=== PATIENT | female | born 1965 | race African-American/Black ===

== ENCOUNTER 2018-04-01 19:56 | Observation (INO) | payer OTHER ==
[2018-04-01 20:33] LABS: ADD MAN DIFF? NO; BASOPHILS % 0.4 % (0.0-2.0); EOSINOPHILS # 0.2 10^3/ul (0.0-0.5); EOSINOPHILS % 3.1 % (0.0-7.0); HEMATOCRIT 36.9 % (37.0-47.0); HEMOGLOBIN 13.1 g/dl (12.0-16.0); LYMPHOCYTES # 2.8 10^3/ul (0.8-2.9); LYMPHOCYTES % 37.8 % (15.0-51.0); MEAN CORPUSCULAR HEMOGLOBIN 30.6 pg (29.0-33.0); MEAN CORPUSCULAR HGB CONC 35.5 g/dl (32.0-37.0); MEAN CORPUSCULAR VOLUME 86.2 fl (82.0-101.0); MONOCYTE # 0.5 10^3/ul (0.3-0.9); MONOCYTES % 7.2 % (0.0-11.0); NEUTROPHIL # 3.8 10^3/ul (1.6-7.5); NEUTROPHILS % 51.2 % (39.0-77.0); PLATELET COUNT 284 10^3/UL (140-415); RED BLOOD COUNT 4.28 10^6/ul (4.20-5.40); RED CELL DISTRIBUTION WIDTH 11.9 % (11.5-14.5)
[2018-04-01 20:33] LABS: WHITE BLOOD COUNT 7.3 10^3/ul (4.8-10.8)
[2018-04-01] MEDS: SOD CHLORIDE 0.9% 820 ML IV (20:39)
[2018-04-01 20:51] LABS: ANION GAP 13 (8-16); BLOOD UREA NITROGEN 13 mg/dl (7-20); CALCIUM 9.4 mg/dl (8.4-10.2); CARBON DIOXIDE 21 mmol/L (21-31); CHLORIDE 101 mmol/L (97-110); CREATININE 0.63 mg/dl (0.44-1.00); MAGNESIUM 1.8 mg/dl (1.7-2.5); PHOSPHORUS 4.2 mg/dl (2.5-4.9); POTASSIUM 4.1 mmol/L (3.5-5.1); SODIUM 131 mmol/L (135-144)
[2018-04-01 20:57] LABS: MODE ROOM AIR; MetHgb Venous 0.4 %; Sample Type Blood venous; Site VENOUS LINE; Venous COHb 0.1 %; Venous Fraction OxyHgb 79.2 %; Venous Oxygen Sat 79.6 mmHG (55.0-75.0); Venous Total Hemglobin 13.3 g/dl
[2018-04-01 21:05] LABS: GLUCOSE 484 mg/dl (70-220)
[2018-04-01] MEDS: DIPHENHYDRAMINE 50 MG INJ IV (21:59)
[2018-04-02] MEDS ORDERED: NACL 0.9% 3 ML SYG IV (02:30)
[2018-04-02] MEDS ORDERED: ONDANSETRON 4 MG INJ IV (02:30)
[2018-04-02] MEDS ORDERED: NITROGLYCERIN (SL) 0.4 MG TAB SL (02:30)
[2018-04-02] MEDS: INSULIN GLARGINE [LANTus] (100 UNITS/ML) SYG SC ×4 (02:30→23:07)
[2018-04-02] MEDS ORDERED: ACETAMINOPHEN 325 MG TAB PO (02:30)
[2018-04-02] MEDS ORDERED: DOCUSATE SODIUM 100 MG CAP PO (02:30)
[2018-04-02] MEDS ORDERED: CARISOPRODOL 350 MG TAB PO (03:30)
[2018-04-02] MEDS: DIPHENHYDRAMINE 25 MG CAP PO ×3 (03:57→21:52)
[2018-04-02] MEDS: SOD CHLORIDE 0.9% 1,000 ML IV (04:44)
[2018-04-02] MEDS: morphine 2 MG INJ IV (04:56)
[2018-04-02 05:38] LABS: ADD MAN DIFF? NO
[2018-04-02 05:40] LABS: WHITE BLOOD COUNT 7.4 10^3/ul (4.8-10.8)
[2018-04-02 05:40] LABS: BASOPHILS % 0.3 % (0.0-2.0); EOSINOPHILS # 0.3 10^3/ul (0.0-0.5); EOSINOPHILS % 3.7 % (0.0-7.0); HEMATOCRIT 35.5 % (37.0-47.0); HEMOGLOBIN 12.8 g/dl (12.0-16.0); LYMPHOCYTES # 2.8 10^3/ul (0.8-2.9); LYMPHOCYTES % 38.2 % (15.0-51.0); MEAN CORPUSCULAR HEMOGLOBIN 31.3 pg (29.0-33.0); MEAN CORPUSCULAR HGB CONC 36.1 g/dl (32.0-37.0); MEAN CORPUSCULAR VOLUME 86.8 fl (82.0-101.0); MEAN PLATELET VOLUME 9.8 fl (7.4-10.4); MONOCYTE # 0.5 10^3/ul (0.3-0.9); MONOCYTES % 7.1 % (0.0-11.0); NEUTROPHIL # 3.7 10^3/ul (1.6-7.5); NEUTROPHILS % 50.4 % (39.0-77.0); PLATELET COUNT 253 10^3/UL (140-415); RED BLOOD COUNT 4.09 10^6/ul (4.20-5.40)
[2018-04-02 06:42] LABS: CK INDEX 1.3; CK-MB 1.32 ng/ml (0.0-2.4); CREATINE KINASE 99 IU/L (23-200); TROPONIN-I 0.025 ng/ml (0.000-0.120)
[2018-04-02 06:51] LABS: ALANINE AMINOTRANSFERASE 22 IU/L (13-69); ALBUMIN/GLOBULIN RATIO 1.25; ALKALINE PHOSPHATASE 53 IU/L (42-121); ANION GAP 9 (8-16); ASPARTATE AMINO TRANSFERASE 15 IU/L (15-46); BILIRUBIN,INDIRECT 0.4 mg/dl (0-1.1); BILIRUBIN,TOTAL 0.4 mg/dl (0.2-1.3); BLOOD UREA NITROGEN 10 mg/dl (7-20); CALCIUM 8.5 mg/dl (8.4-10.2); CARBON DIOXIDE 23 mmol/L (21-31); CHLORIDE 106 mmol/L (97-110); CHOL/HDL RATIO 3.4 RATIO; CHOLESTEROL 194 mg/dl (100-200); GLUCOSE 292 mg/dl (70-220); HDL CHOLESTEROL 57 mg/dl (37-92); LDL CHOLESTEROL,CALCULATED 115 mg/dl; MAGNESIUM 1.6 mg/dl (1.7-2.5); POTASSIUM 4.1 mmol/L (3.5-5.1); SODIUM 134 mmol/L (135-144); TOTAL PROTEIN 5.4 g/dl (6.1-8.1); TRIGLYCERIDES 110 mg/dl (0-149)
[2018-04-02] MEDS ORDERED: INSULIN ASPART [NOVOLOG] 3 ML PEN SC (07:30)
[2018-04-02] MEDS: INSULIN ASPART [NOVOLOG] 3 ML PEN SC ×6 (07:38→21:00)
[2018-04-02] MEDS: RANOLAZINE (SR) 500 MG TAB PO ×2 (09:06→21:52)
[2018-04-02] MEDS: ASPIRIN (EC) 81 MG TAB PO (09:08)
[2018-04-02] MEDS: METOPROLOL (XL) 25 MG TAB PO (09:08)
[2018-04-02] MEDS: ISOSORBIDE MONONITRATE(SR)30 MG TAB PO (09:08)
[2018-04-02] MEDS: DIPHENHYDRAMINE 50 MG INJ IV (10:26)
[2018-04-02 10:51] LABS: CREATINE KINASE 85 IU/L (23-200)
[2018-04-02 10:57] LABS: CK INDEX 1.1; CK-MB 0.95 ng/ml (0.0-2.4); TROPONIN-I < 0.010 ng/ml (0.000-0.120)
[2018-04-02] MEDS: HYDROCODONE/APAP (10/325) TAB PO ×2 (12:30→19:58)
[2018-04-02 15:34] LABS: HEMOGLOBIN A1C 12.9 % (0-5.9)
[2018-04-02] MEDS: LINAGLIPTIN 5 MG TABLET PO ×2 (18:30→19:57)
[2018-04-02] MEDS: metFORMIN 500 MG TAB PO ×2 (18:30→19:57)
[2018-04-02] MEDS ORDERED: GLUCOSE GEL 15 GRAM TUBE BUCCAL (19:30)
[2018-04-02] MEDS: PERMETHRIN 5% 60 GM CR TOP (19:30)
[2018-04-02] MEDS ORDERED: DEXTROSE 50% 50 ML SYRINGE IV ×2 (19:30)
[2018-04-02] MEDS ORDERED: GLUCAGON 1 MG INJ IM (19:30)
[2018-04-02] MEDS ORDERED: GLUCOSE GEL 15 GRAM TUBE PO ×2 (19:30)
[2018-04-02 20:21] LABS: HEPATITIS B SURFACE ANTIGEN NEGATIVE (NEGATIVE)
[2018-04-02 20:39] LABS: HEPATITIS C VIRAL ANTIBODY NEGATIVE (NEGATIVE)
[2018-04-02 20:43] LABS: HEPATITIS B SURFACE ANTIBODY NEGATIVE (NEGATIVE)
[2018-04-02] MEDS: MAGNESIUM SULFATE 2 GM/50 ML 50 ML IVPB (21:46)
[2018-04-02] MEDS: ZOLPIDEM 5 MG TAB PO (21:52)
[2018-04-02] MEDS: ATORVASTATIN 40 MG TAB PO (21:52)
[2018-04-02] MEDS: GABAPENTIN 300 MG CAP PO (21:52)
[2018-04-02] MEDS: PAROXETINE 10 MG TAB PO (21:53)
[2018-04-02] MEDS: ARIPIPRAZOLE 10 MG TAB PO (22:05)
[2018-04-03] MEDS: ACCU-CHEK XX (02:41)
[2018-04-03] MEDS: INSULIN ASPART [NOVOLOG] 3 ML PEN SC ×7 (08:13→20:35)
[2018-04-03] MEDS: morphine 2 MG INJ IV ×3 (08:22→20:36)
[2018-04-03] MEDS: LINAGLIPTIN 5 MG TABLET PO (08:23)
[2018-04-03] MEDS: metFORMIN 500 MG TAB PO ×2 (08:23→17:07)
[2018-04-03] MEDS: ASPIRIN (EC) 81 MG TAB PO (08:23)
[2018-04-03] MEDS: RANOLAZINE (SR) 500 MG TAB PO ×2 (08:24→20:36)
[2018-04-03] MEDS: ISOSORBIDE MONONITRATE(SR)30 MG TAB PO (08:24)
[2018-04-03] MEDS: METOPROLOL (XL) 25 MG TAB PO (08:25)
[2018-04-03] MEDS: INSULIN GLARGINE [LANTus] (100 UNITS/ML) SYG SC ×2 (08:32→20:55)
[2018-04-03] MEDS: DIPHENHYDRAMINE 50 MG INJ IV ×2 (11:51→20:45)
[2018-04-03] MEDS: FLUTICASONE/VILANTEROL 200-25 INH DEVICE INH (13:34)
[2018-04-03] MEDS: MONTELUKAST 10 MG TAB PO (20:36)
[2018-04-03] MEDS: PAROXETINE 10 MG TAB PO (20:36)
[2018-04-03] MEDS: ARIPIPRAZOLE 10 MG TAB PO (20:36)
[2018-04-03] MEDS: GABAPENTIN 300 MG CAP PO (20:36)
[2018-04-03] MEDS: ATORVASTATIN 40 MG TAB PO (20:36)
[2018-04-04] MEDS: ACCU-CHEK XX (02:00)
[2018-04-04] MEDS: morphine 2 MG INJ IV ×3 (02:54→13:09)
[2018-04-04] MEDS: DIPHENHYDRAMINE 50 MG INJ IV ×3 (02:55→13:09)
[2018-04-04] MEDS: LOSARTAN 50 MG TAB PO ×2 (06:33→08:59)
[2018-04-04] MEDS: metFORMIN 500 MG TAB PO (07:44)
[2018-04-04] MEDS: INSULIN ASPART [NOVOLOG] 3 ML PEN SC ×4 (07:51→11:29)
[2018-04-04 08:44] LABS: ADD MAN DIFF? NO
[2018-04-04 08:52] LABS: BASOPHILS % 0.4 % (0.0-2.0); EOSINOPHILS # 0.3 10^3/ul (0.0-0.5); EOSINOPHILS % 3.3 % (0.0-7.0); HEMOGLOBIN 13.3 g/dl (12.0-16.0); LYMPHOCYTES # 2.7 10^3/ul (0.8-2.9); LYMPHOCYTES % 29.6 % (15.0-51.0); MEAN CORPUSCULAR HEMOGLOBIN 30.8 pg (29.0-33.0); MEAN CORPUSCULAR HGB CONC 34.1 g/dl (32.0-37.0); MEAN CORPUSCULAR VOLUME 90.3 fl (82.0-101.0); MONOCYTE # 0.8 10^3/ul (0.3-0.9); MONOCYTES % 8.5 % (0.0-11.0); NEUTROPHIL # 5.3 10^3/ul (1.6-7.5); NEUTROPHILS % 57.9 % (39.0-77.0); PLATELET COUNT 317 10^3/UL (140-415); RED BLOOD COUNT 4.32 10^6/ul (4.20-5.40); RED CELL DISTRIBUTION WIDTH 12.4 % (11.5-14.5)
[2018-04-04 08:52] LABS: WHITE BLOOD COUNT 9.1 10^3/ul (4.8-10.8)
[2018-04-04] MEDS: FLUTICASONE/VILANTEROL 200-25 INH DEVICE INH (08:57)
[2018-04-04] MEDS: ASPIRIN (EC) 81 MG TAB PO (08:58)
[2018-04-04] MEDS: RANOLAZINE (SR) 500 MG TAB PO (08:58)
[2018-04-04] MEDS: ISOSORBIDE MONONITRATE(SR)30 MG TAB PO (08:59)
[2018-04-04] MEDS: METOPROLOL (XL) 25 MG TAB PO (08:59)
[2018-04-04] MEDS: LINAGLIPTIN 5 MG TABLET PO (08:59)
[2018-04-04] MEDS: INSULIN GLARGINE [LANTus] (100 UNITS/ML) SYG SC (09:03)
[2018-04-04 09:15] LABS: ANION GAP 9 (8-16); BLOOD UREA NITROGEN 14 mg/dl (7-20); CARBON DIOXIDE 25 mmol/L (21-31); CHLORIDE 107 mmol/L (97-110); CREATININE 0.81 mg/dl (0.44-1.00); GLUCOSE 69 mg/dl (70-220); MAGNESIUM 1.6 mg/dl (1.7-2.5); POTASSIUM 4.1 mmol/L (3.5-5.1); SODIUM 137 mmol/L (135-144)
[2018-04-04] MEDS: MAGNESIUM SULFATE 2 GM/50 ML 50 ML IVPB (12:37)
[2018-04-04] MEDS ORDERED: REPAGLINIDE 1 MG TAB PO (17:25)
[2018-04-04] MEDS ORDERED: INSULIN GLARGINE [LANTus] (100 UNITS/ML) SYG SC (21:00)
== END 2018-04-04 17:09 | disposition home health service (06) ==
LOC: E/R 19:56 → TEL 04-02 02:27
DX: R07.89 Other chest pain (principal); I10 Essential (primary) hypertension; E11.9 Type 2 diabetes mellitus without complications; I25.10 Atherosclerotic heart disease of native coronary artery without angina pectoris; E11.40 Type 2 diabetes mellitus with diabetic neuropathy, unspecified; E78.5 Hyperlipidemia, unspecified; F32.9 Major depressive disorder, single episode, unspecified; I25.2 Old myocardial infarction; E11.65 Type 2 diabetes mellitus with hyperglycemia; E66.9 Obesity, unspecified; L29.9 Pruritus, unspecified; J45.40 Moderate persistent asthma, uncomplicated; E11.69 Type 2 diabetes mellitus with other specified complication; E83.42 Hypomagnesemia; Z68.29 Body mass index [BMI] 29.0-29.9, adult; Z79.4 Long term (current) use of insulin
CPT/HCPCS: 36415; 71045; 80048; 80053; 80061; 82550; 82553; 82803; 82962; 83036; 83735; 84100; 84443; 84484; 85025; 86706; 86803; 87340; 93005; 93306; 96374; 99217; 99285-25; G0378

== ENCOUNTER 2018-04-21 16:16 | Inpatient (IN) | payer OTHER ==
[2018-04-21 16:33] LABS: ADD MAN DIFF? NO
[2018-04-21 16:37] LABS: WHITE BLOOD COUNT 8.6 10^3/ul (4.8-10.8)
[2018-04-21 16:37] LABS: BASOPHILS % 0.5 % (0.0-2.0); EOSINOPHILS # 0.2 10^3/ul (0.0-0.5); EOSINOPHILS % 2.3 % (0.0-7.0); HEMATOCRIT 34.2 % (37.0-47.0); HEMOGLOBIN 12.1 g/dl (12.0-16.0); LYMPHOCYTES # 2.2 10^3/ul (0.8-2.9); LYMPHOCYTES % 25.1 % (15.0-51.0); MEAN CORPUSCULAR HEMOGLOBIN 30.6 pg (29.0-33.0); MEAN CORPUSCULAR HGB CONC 35.4 g/dl (32.0-37.0); MEAN CORPUSCULAR VOLUME 86.6 fl (82.0-101.0); MEAN PLATELET VOLUME 9.9 fl (7.4-10.4); MONOCYTE # 0.8 10^3/ul (0.3-0.9); MONOCYTES % 8.9 % (0.0-11.0); NEUTROPHIL # 5.4 10^3/ul (1.6-7.5); PLATELET COUNT 307 10^3/UL (140-415); RED BLOOD COUNT 3.95 10^6/ul (4.20-5.40); RED CELL DISTRIBUTION WIDTH 11.6 % (11.5-14.5)
[2018-04-21] MEDS: morphine 4 MG/ML VIAL IV (16:46)
[2018-04-21] MEDS: ONDANSETRON 4 MG INJ IV (16:46)
[2018-04-21] MEDS: SOD CHLORIDE 0.9% 1,000 ML IV ×2 (16:47→21:53)
[2018-04-21 16:51] LABS: INR 0.85; PROTIME 11.7 Sec (11.9-14.9); PT RATIO 0.9
[2018-04-21 16:52] LABS: PARTIAL THROMBOPLASTIN TIME 29.2 Sec (25.0-35.0)
[2018-04-21 16:56] LABS: ALANINE AMINOTRANSFERASE 20 IU/L (13-69); ALBUMIN 3.8 g/dl (3.3-4.9); ALBUMIN/GLOBULIN RATIO 1.31; ALKALINE PHOSPHATASE 75 IU/L (42-121); ANION GAP 15 (8-16); ASPARTATE AMINO TRANSFERASE 27 IU/L (15-46); BILIRUBIN,INDIRECT 0.5 mg/dl (0-1.1); BILIRUBIN,TOTAL 0.5 mg/dl (0.2-1.3); BLOOD UREA NITROGEN 10 mg/dl (7-20); CALCIUM 9.3 mg/dl (8.4-10.2); CARBON DIOXIDE 24 mmol/L (21-31); CHLORIDE 98 mmol/L (97-110); CREATININE 0.84 mg/dl (0.44-1.00); GLUCOSE 390 mg/dl (70-220); LIPASE 50 U/L (23-300); POTASSIUM 4.4 mmol/L (3.5-5.1); SODIUM 133 mmol/L (135-144); TOTAL PROTEIN 6.7 g/dl (6.1-8.1)
[2018-04-21 17:04] LABS: B-TYPE NATRIURETIC PEPTIDE 719 PG/ML (0-125)
[2018-04-21] MEDS: ASPIRIN 81 MG TAB PO (17:27)
[2018-04-21] MEDS: TICAGRELOR 90 MG TABLET PO ×2 (18:21→20:53)
[2018-04-21] MEDS: DIPHENHYDRAMINE 50 MG INJ IV (18:21)
[2018-04-21] MEDS ORDERED: TICAGRELOR 90 MG TABLET PO (18:30)
[2018-04-21] MEDS ORDERED: LIDOCAINE 1% (MDV) 20 ML INJ (18:33)
[2018-04-21] MEDS ORDERED: IODIXANOL LOCM 100 ML BTL ×3 (18:33→19:48)
[2018-04-21 18:38] LABS: CREATINE KINASE 135 IU/L (23-200)
[2018-04-21] MEDS ORDERED: MIDAZOLAM 1 MG/ML 2 ML INJ (18:43)
[2018-04-21] MEDS ORDERED: FENTAnyl 50 MCG/ML VIAL (18:43)
[2018-04-21 18:51] LABS: CK INDEX 1.2; CK-MB 1.58 ng/ml (0.0-2.4)
[2018-04-21] MEDS ORDERED: CARISOPRODOL 350 MG TAB PO (19:00)
[2018-04-21] MEDS ORDERED: DOCUSATE SODIUM 100 MG CAP PO (19:00)
[2018-04-21] MEDS ORDERED: NITROGLYCERIN (IC) 100 MCG/ML INJ (19:02)
[2018-04-21] MEDS ORDERED: BIVALIRUDIN 250MG /NS 50 ML 50 ML IVPB (19:14)
[2018-04-21] MEDS ORDERED: VERAPAMIL 5 MG INJ (19:23)
[2018-04-21] MEDS ORDERED: GLUCOSE GEL 15 GRAM TUBE PO ×2 (19:30)
[2018-04-21] MEDS ORDERED: GLUCOSE GEL 15 GRAM TUBE BUCCAL (19:30)
[2018-04-21] MEDS ORDERED: DEXTROSE 50% 50 ML SYRINGE IV ×2 (19:30)
[2018-04-21] MEDS ORDERED: GLUCAGON 1 MG INJ IM (19:30)
[2018-04-21] MEDS ORDERED: IOHEXOL 350MG/ML 50 ML BTL (19:48)
[2018-04-21] MEDS ORDERED: DOPamine-D5W 1.6 MG/ML 250 ML (20:04)
[2018-04-21] MEDS ORDERED: SOD CHLORIDE 0.9% 500 ML (20:08)
[2018-04-21] MEDS ORDERED: ACETAMINOPHEN 325 MG TAB PO (20:30)
[2018-04-21] MEDS: DOCUSATE SODIUM 100 MG CAP PO (21:00)
[2018-04-21] MEDS ORDERED: ATORVASTATIN 40 MG TAB PO (21:00)
[2018-04-21] MEDS: RANOLAZINE (SR) 500 MG TAB PO (21:46)
[2018-04-21] MEDS: PAROXETINE 10 MG TAB PO (21:47)
[2018-04-21] MEDS: ARIPIPRAZOLE 10 MG TAB PO (21:47)
[2018-04-21] MEDS: GABAPENTIN 300 MG CAP PO (21:48)
[2018-04-21] MEDS: OXYCODONE/ACETAMINOPHEN (5/325) TAB PO (21:48)
[2018-04-21] MEDS: ATORVASTATIN 80 MG TAB PO (21:48)
[2018-04-21] MEDS: FAMOTIDINE 20 MG TAB PO (21:48)
[2018-04-21] MEDS: DOPamine-D5W 1.6 MG/ML 250 ML IV (21:56)
[2018-04-21] MEDS: PANTOPRAZOLE SODIUM 20 MG TABEC PO (22:39)
[2018-04-21] MEDS: INSULIN GLARGINE [LANTus] (100 UNITS/ML) SYG SC (22:41)
[2018-04-21] MEDS: morphine 2 MG INJ IV (23:35)
[2018-04-22] MEDS: INSULIN ASPART [NOVOLOG] 3 ML PEN SC ×9 (01:10→21:00)
[2018-04-22] MEDS: morphine 2 MG INJ IV ×4 (04:35→21:10)
[2018-04-22 05:14] LABS: ADD MAN DIFF? NO
[2018-04-22 05:25] LABS: BASOPHILS % 0.3 % (0.0-2.0); EOSINOPHILS # 0.1 10^3/ul (0.0-0.5); EOSINOPHILS % 1.1 % (0.0-7.0); HEMATOCRIT 34.1 % (37.0-47.0); LYMPHOCYTES # 1.5 10^3/ul (0.8-2.9); LYMPHOCYTES % 16.9 % (15.0-51.0); MEAN CORPUSCULAR HEMOGLOBIN 30.5 pg (29.0-33.0); MEAN CORPUSCULAR HGB CONC 35.2 g/dl (32.0-37.0); MEAN CORPUSCULAR VOLUME 86.8 fl (82.0-101.0); MEAN PLATELET VOLUME 10.1 fl (7.4-10.4); MONOCYTE # 0.6 10^3/ul (0.3-0.9); MONOCYTES % 6.6 % (0.0-11.0); NEUTROPHIL # 6.7 10^3/ul (1.6-7.5); NEUTROPHILS % 74.9 % (39.0-77.0); PLATELET COUNT 324 10^3/UL (140-415); RED BLOOD COUNT 3.93 10^6/ul (4.20-5.40); RED CELL DISTRIBUTION WIDTH 11.9 % (11.5-14.5)
[2018-04-22 05:42] LABS: ALANINE AMINOTRANSFERASE 25 IU/L (13-69); ALBUMIN 3.2 g/dl (3.3-4.9); ALBUMIN/GLOBULIN RATIO 1.03; ALKALINE PHOSPHATASE 58 IU/L (42-121); ANION GAP 14 (8-16); ASPARTATE AMINO TRANSFERASE 27 IU/L (15-46); BILIRUBIN,INDIRECT 0.6 mg/dl (0-1.1); BILIRUBIN,TOTAL 0.6 mg/dl (0.2-1.3); BLOOD UREA NITROGEN 12 mg/dl (7-20); CALCIUM 8.8 mg/dl (8.4-10.2); CARBON DIOXIDE 23 mmol/L (21-31); CHLORIDE 103 mmol/L (97-110); CHOL/HDL RATIO 2.6 RATIO; CHOLESTEROL 131 mg/dl (100-200); GLUCOSE 289 mg/dl (70-220); HDL CHOLESTEROL 49 mg/dl (37-92); LDL CHOLESTEROL,CALCULATED 69 mg/dl; POTASSIUM 4.2 mmol/L (3.5-5.1); SODIUM 136 mmol/L (135-144); TOTAL PROTEIN 6.3 g/dl (6.1-8.1); TRIGLYCERIDES 66 mg/dl (0-149)
[2018-04-22 05:48] LABS: CREATINE KINASE 148 IU/L (23-200)
[2018-04-22 05:50] LABS: MAGNESIUM 1.4 mg/dl (1.7-2.5)
[2018-04-22 05:51] LABS: B-TYPE NATRIURETIC PEPTIDE 502 PG/ML (0-125)
[2018-04-22 05:59] LABS: FREE T4 (FREE THYROXINE) 1.09 ng/dl (0.64-1.79)
[2018-04-22 06:01] LABS: CK INDEX 1.2; CK-MB 1.79 ng/ml (0.0-2.4)
[2018-04-22] MEDS: PANTOPRAZOLE SODIUM 20 MG TABEC PO ×2 (06:42→18:00)
[2018-04-22] MEDS ORDERED: INSULIN ASPART [NOVOLOG] 3 ML PEN SC (07:00)
[2018-04-22] MEDS: ASPIRIN (EC) 81 MG TAB PO (08:08)
[2018-04-22] MEDS: TICAGRELOR 90 MG TABLET PO (08:08)
[2018-04-22] MEDS: DOCUSATE SODIUM 100 MG CAP PO ×2 (08:09→21:10)
[2018-04-22] MEDS: METOPROLOL (XL) 25 MG TAB PO (08:09)
[2018-04-22] MEDS: RANOLAZINE (SR) 500 MG TAB PO ×2 (08:09→21:09)
[2018-04-22] MEDS: ISOSORBIDE MONONITRATE(SR)30 MG TAB PO (08:09)
[2018-04-22] MEDS: FAMOTIDINE 20 MG TAB PO ×2 (08:09→21:10)
[2018-04-22] MEDS ORDERED: ASPIRIN (EC) 81 MG TAB PO (09:00)
[2018-04-22] MEDS ORDERED: LINAGLIPTIN 5 MG TABLET PO (10:00)
[2018-04-22] MEDS: DIPHENHYDRAMINE 50 MG INJ IV (10:20)
[2018-04-22] MEDS: MAGNESIUM SULFATE 2 GM/50 ML 50 ML IVPB (10:21)
[2018-04-22] MEDS ORDERED: ACCU-CHEK XX (11:00)
[2018-04-22] MEDS: ACCU-CHEK XX ×3 (11:00→21:00)
[2018-04-22] MEDS: INSULIN GLARGINE [LANTus] (100 UNITS/ML) SYG SC ×2 (11:25→21:12)
[2018-04-22] MEDS ORDERED: metFORMIN 500 MG TAB PO (17:35)
[2018-04-22] MEDS: CLOPIDOGREL 75 MG TAB PO (21:08)
[2018-04-22] MEDS: GABAPENTIN 300 MG CAP PO (21:09)
[2018-04-22] MEDS: PAROXETINE 10 MG TAB PO (21:09)
[2018-04-22] MEDS: ATORVASTATIN 80 MG TAB PO (21:09)
[2018-04-22] MEDS: ARIPIPRAZOLE 5 MG TAB PO (21:17)
[2018-04-23] MEDS: DIPHENHYDRAMINE 50 MG CAP PO (00:38)
[2018-04-23] MEDS: INSULIN ASPART [NOVOLOG] 3 ML PEN SC ×9 (00:52→20:21)
[2018-04-23] MEDS: morphine 2 MG INJ IV ×2 (04:34→08:25)
[2018-04-23] MEDS: PANTOPRAZOLE SODIUM 20 MG TABEC PO ×2 (05:33→17:19)
[2018-04-23 05:39] LABS: ADD MAN DIFF? NO
[2018-04-23 05:44] LABS: BASOPHILS % 0.4 % (0.0-2.0); EOSINOPHILS # 0.2 10^3/ul (0.0-0.5); EOSINOPHILS % 3.1 % (0.0-7.0); HEMATOCRIT 33.9 % (37.0-47.0); HEMOGLOBIN 11.8 g/dl (12.0-16.0); LYMPHOCYTES # 2.4 10^3/ul (0.8-2.9); LYMPHOCYTES % 30.9 % (15.0-51.0); MEAN CORPUSCULAR HEMOGLOBIN 30.4 pg (29.0-33.0); MEAN CORPUSCULAR HGB CONC 34.8 g/dl (32.0-37.0); MEAN CORPUSCULAR VOLUME 87.4 fl (82.0-101.0); MEAN PLATELET VOLUME 10.2 fl (7.4-10.4); MONOCYTE # 0.5 10^3/ul (0.3-0.9); MONOCYTES % 6.9 % (0.0-11.0); NEUTROPHIL # 4.5 10^3/ul (1.6-7.5); NEUTROPHILS % 58.4 % (39.0-77.0); PLATELET COUNT 292 10^3/UL (140-415); RED BLOOD COUNT 3.88 10^6/ul (4.20-5.40)
[2018-04-23 05:44] LABS: WHITE BLOOD COUNT 7.7 10^3/ul (4.8-10.8)
[2018-04-23 06:03] LABS: HEMOGLOBIN A1C 11.4 % (0-5.9)
[2018-04-23 06:11] LABS: ALANINE AMINOTRANSFERASE 19 IU/L (13-69); ALBUMIN 3.2 g/dl (3.3-4.9); ALKALINE PHOSPHATASE 52 IU/L (42-121); ANION GAP 12 (8-16); ASPARTATE AMINO TRANSFERASE 25 IU/L (15-46); BILIRUBIN,INDIRECT 0.2 mg/dl (0-1.1); BILIRUBIN,TOTAL 0.2 mg/dl (0.2-1.3); BLOOD UREA NITROGEN 17 mg/dl (7-20); CALCIUM 9.6 mg/dl (8.4-10.2); CARBON DIOXIDE 25 mmol/L (21-31); CHLORIDE 103 mmol/L (97-110); CHOL/HDL RATIO 2.6 RATIO; CHOLESTEROL 131 mg/dl (100-200); CREATINE KINASE 90 IU/L (23-200); CREATININE 0.74 mg/dl (0.44-1.00); GLUCOSE 183 mg/dl (70-220); HDL CHOLESTEROL 49 mg/dl (37-92); LDL CHOLESTEROL,CALCULATED 65 mg/dl; SODIUM 136 mmol/L (135-144); TOTAL PROTEIN 6.1 g/dl (6.1-8.1); TRIGLYCERIDES 86 mg/dl (0-149)
[2018-04-23 06:23] LABS: CK INDEX 1.7; CK-MB 1.53 ng/ml (0.0-2.4)
[2018-04-23 06:27] LABS: ANION GAP 14 (8-16); BLOOD UREA NITROGEN 16 mg/dl (7-20); CALCIUM 9.7 mg/dl (8.4-10.2); CARBON DIOXIDE 24 mmol/L (21-31); CHLORIDE 102 mmol/L (97-110); GLUCOSE 177 mg/dl (70-220); MAGNESIUM 1.3 mg/dl (1.7-2.5); PHOSPHORUS 5.4 mg/dl (2.5-4.9); POTASSIUM 4.4 mmol/L (3.5-5.1); SODIUM 136 mmol/L (135-144)
[2018-04-23] MEDS: ACCU-CHEK XX ×4 (07:55→21:53)
[2018-04-23] MEDS: FAMOTIDINE 20 MG TAB PO (08:22)
[2018-04-23] MEDS: DOCUSATE SODIUM 100 MG CAP PO ×2 (08:22→20:19)
[2018-04-23] MEDS: ASPIRIN (EC) 81 MG TAB PO (08:23)
[2018-04-23] MEDS: CLOPIDOGREL 75 MG TAB PO (08:23)
[2018-04-23] MEDS: ISOSORBIDE MONONITRATE(SR)30 MG TAB PO (08:23)
[2018-04-23] MEDS: RANOLAZINE (SR) 500 MG TAB PO ×2 (08:23→21:53)
[2018-04-23] MEDS: METOPROLOL (XL) 25 MG TAB PO (08:24)
[2018-04-23] MEDS: INSULIN GLARGINE [LANTus] (100 UNITS/ML) SYG SC ×2 (08:31→20:36)
[2018-04-23] MEDS: MAGNESIUM SULFATE 2 GM/50 ML 50 ML IVPB (11:19)
[2018-04-23] MEDS ORDERED: LISINOPRIL 5 MG TAB PO (12:30)
[2018-04-23] MEDS: LOSARTAN 50 MG TAB PO (17:19)
[2018-04-23] MEDS: morphine LIQ (10 MG/5 ML) CUP PO (17:37)
[2018-04-23] MEDS: ARIPIPRAZOLE 5 MG TAB PO (20:18)
[2018-04-23] MEDS: GABAPENTIN 300 MG CAP PO (20:19)
[2018-04-23] MEDS: PAROXETINE 10 MG TAB PO (20:19)
[2018-04-23] MEDS: ATORVASTATIN 80 MG TAB PO (20:19)
[2018-04-24] MEDS: morphine LIQ (10 MG/5 ML) CUP PO ×2 (01:26→09:13)
[2018-04-24] MEDS: INSULIN ASPART [NOVOLOG] 3 ML PEN SC ×6 (01:29→11:36)
[2018-04-24 06:18] LABS: ADD MAN DIFF? NO
[2018-04-24 06:30] LABS: WHITE BLOOD COUNT 7.4 10^3/ul (4.8-10.8)
[2018-04-24 06:30] LABS: BASOPHILS % 0.4 % (0.0-2.0); EOSINOPHILS # 0.3 10^3/ul (0.0-0.5); EOSINOPHILS % 3.8 % (0.0-7.0); HEMATOCRIT 36.3 % (37.0-47.0); HEMOGLOBIN 12.4 g/dl (12.0-16.0); LYMPHOCYTES # 2.5 10^3/ul (0.8-2.9); LYMPHOCYTES % 33.4 % (15.0-51.0); MEAN CORPUSCULAR HEMOGLOBIN 30.5 pg (29.0-33.0); MEAN CORPUSCULAR HGB CONC 34.2 g/dl (32.0-37.0); MEAN CORPUSCULAR VOLUME 89.2 fl (82.0-101.0); MONOCYTE # 0.7 10^3/ul (0.3-0.9); MONOCYTES % 8.8 % (0.0-11.0); NEUTROPHIL # 3.9 10^3/ul (1.6-7.5); NEUTROPHILS % 53.3 % (39.0-77.0); PLATELET COUNT 317 10^3/UL (140-415); RED BLOOD COUNT 4.07 10^6/ul (4.20-5.40); RED CELL DISTRIBUTION WIDTH 11.9 % (11.5-14.5)
[2018-04-24] MEDS: PANTOPRAZOLE SODIUM 20 MG TABEC PO (06:37)
[2018-04-24 06:40] LABS: ALBUMIN 3.1 g/dl (3.3-4.9); ANION GAP 10 (8-16); BLOOD UREA NITROGEN 16 mg/dl (7-20); CALCIUM 9.6 mg/dl (8.4-10.2); CARBON DIOXIDE 29 mmol/L (21-31); CHLORIDE 100 mmol/L (97-110); CREATININE 0.66 mg/dl (0.44-1.00); GLUCOSE 159 mg/dl (70-220); MAGNESIUM 1.5 mg/dl (1.7-2.5); PHOSPHORUS 5.7 mg/dl (2.5-4.9); POTASSIUM 4.4 mmol/L (3.5-5.1); SODIUM 135 mmol/L (135-144)
[2018-04-24] MEDS: ACCU-CHEK XX ×2 (07:00→11:30)
[2018-04-24] MEDS: METOPROLOL (XL) 25 MG TAB PO (07:46)
[2018-04-24] MEDS: DOCUSATE SODIUM 100 MG CAP PO (07:46)
[2018-04-24] MEDS: LOSARTAN 50 MG TAB PO (07:46)
[2018-04-24] MEDS: ASPIRIN (EC) 81 MG TAB PO (07:46)
[2018-04-24] MEDS: RANOLAZINE (SR) 500 MG TAB PO (07:46)
[2018-04-24] MEDS: CLOPIDOGREL 75 MG TAB PO (07:47)
[2018-04-24] MEDS: ISOSORBIDE MONONITRATE(SR)30 MG TAB PO (07:47)
[2018-04-24] MEDS: INSULIN GLARGINE [LANTus] (100 UNITS/ML) SYG SC (08:09)
[2018-04-24] MEDS: MAGNESIUM SULFATE 3 GM in DEXTROSE 5% 100 ML IVPB (08:30)
== END 2018-04-24 15:58 | disposition home health service (06) | DRG 246 ==
LOC: E/R 16:16 → 6WM 04-22 16:30 → REC 18:14 → ICU 20:34
PROC: 027034Z Dilation of Coronary Artery, One Artery with Drug-eluting Intraluminal Device, Percutaneous Approach (ICD-10-PCS; principal; 2018-04-21 18:30)
PROC: 02C03ZZ Extirpation of Matter from Coronary Artery, One Artery, Percutaneous Approach (ICD-10-PCS; 2018-04-21 18:30)
PROC: 4A023N7 Measurement of Cardiac Sampling and Pressure, Left Heart, Percutaneous Approach (ICD-10-PCS; 2018-04-21 18:30)
PROC: B211YZZ Fluoroscopy of Multiple Coronary Arteries using Other Contrast (ICD-10-PCS; 2018-04-21 18:30)
DX: T82.855A Stenosis of coronary artery stent, initial encounter (principal); I21.4 Non-ST elevation (NSTEMI) myocardial infarction; R57.0 Cardiogenic shock; I25.10 Atherosclerotic heart disease of native coronary artery without angina pectoris; I10 Essential (primary) hypertension; E66.9 Obesity, unspecified; E78.5 Hyperlipidemia, unspecified; F17.200 Nicotine dependence, unspecified, uncomplicated; E11.40 Type 2 diabetes mellitus with diabetic neuropathy, unspecified; I25.2 Old myocardial infarction; F39 Unspecified mood [affective] disorder; Z68.30 Body mass index [BMI] 30.0-30.9, adult; Z91.14 Patient's other noncompliance with medication regimen
CPT/HCPCS: 36415; 71045; 80053; 80061; 80069; 82550; 82553; 82962; 83036; 83690; 83735; 83880; 84439; 84443; 84484; 85025; 85610; 85730; 87081; 93005; 93306; 93458; 96374; 96375; 97116; 97161; 99291-25

== ENCOUNTER 2018-05-28 13:54 | Emergency (ER) | payer OTHER ==
[2018-05-28 14:26] LABS: ADD MAN DIFF? NO
[2018-05-28 14:29] LABS: WHITE BLOOD COUNT 7.1 10^3/ul (4.8-10.8)
[2018-05-28 14:29] LABS: BASOPHILS % 0.4 % (0.0-2.0); EOSINOPHILS # 0.1 10^3/ul (0.0-0.5); HEMATOCRIT 39.2 % (37.0-47.0); LYMPHOCYTES # 1.7 10^3/ul (0.8-2.9); LYMPHOCYTES % 24.5 % (15.0-51.0); MEAN CORPUSCULAR HEMOGLOBIN 30.6 pg (29.0-33.0); MEAN CORPUSCULAR HGB CONC 35.7 g/dl (32.0-37.0); MEAN CORPUSCULAR VOLUME 85.8 fl (82.0-101.0); MONOCYTE # 0.4 10^3/ul (0.3-0.9); MONOCYTES % 6.1 % (0.0-11.0); NEUTROPHIL # 4.8 10^3/ul (1.6-7.5); NEUTROPHILS % 67.9 % (39.0-77.0); PLATELET COUNT 314 10^3/UL (140-415); RED BLOOD COUNT 4.57 10^6/ul (4.20-5.40); RED CELL DISTRIBUTION WIDTH 11.7 % (11.5-14.5)
[2018-05-28] MEDS: LIDOCAINE/MYLANTA 40 ML BTL PO (14:33)
[2018-05-28] MEDS: ASPIRIN 325 MG TAB PO (14:33)
[2018-05-28 14:48] LABS: ANION GAP 15 (8-16); BLOOD UREA NITROGEN 9 mg/dl (7-20); CALCIUM 9.1 mg/dl (8.4-10.2); CARBON DIOXIDE 25 mmol/L (21-31); CHLORIDE 100 mmol/L (97-110); CREATININE 0.68 mg/dl (0.44-1.00); POTASSIUM 4.6 mmol/L (3.5-5.1); SODIUM 135 mmol/L (135-144)
[2018-05-28 14:51] LABS: GLUCOSE 459 mg/dl (70-220)
[2018-05-28 15:00] LABS: B-TYPE NATRIURETIC PEPTIDE 356 PG/ML (0-125); TROPONIN-I < 0.012 ng/ml (0.000-0.120)
[2018-05-28 15:07] LABS: LIPASE 189 U/L (23-300)
[2018-05-28] MEDS: ONDANSETRON 4 MG INJ IV (15:55)
[2018-05-28] MEDS: SOD CHLORIDE 0.9% 1,000 ML IV (15:56)
[2018-05-28] MEDS: KETOROLAC 30 MG INJ IV (15:56)
[2018-05-28] MEDS: INSULIN LISPRO 100 UNIT/ML VIAL SC (16:14)
[2018-05-28] MEDS: hydrOXYzine HCL 25 MG TAB PO (16:22)
[2018-05-28 19:28] LABS: TROPONIN-I < 0.012 ng/ml (0.000-0.120)
== END 2018-05-28 20:38 | disposition short-term general hospital (02) ==
LOC: E/R 13:54
DX: R07.9 Chest pain, unspecified (principal); E11.65 Type 2 diabetes mellitus with hyperglycemia; Z76.5 Malingerer [conscious simulation]; Z79.01 Long term (current) use of anticoagulants; Z79.4 Long term (current) use of insulin; Z79.82 Long term (current) use of aspirin
CPT/HCPCS: 36415; 71045; 80048; 82962; 83690; 83880; 84484; 85025; 93005; 96361; 96372; 96374; 96375; 99285-25

== ENCOUNTER 2018-08-16 09:30 | Emergency (ER) | payer OTHER ==
[2018-08-16 09:48] LABS: ADD MAN DIFF? NO
[2018-08-16 09:50] LABS: BASOPHILS % 0.3 % (0.0-2.0); EOSINOPHILS # 0.2 10^3/ul (0.0-0.5); HEMATOCRIT 34.7 % (37.0-47.0); HEMOGLOBIN 11.8 g/dl (12.0-16.0); LYMPHOCYTES # 1.8 10^3/ul (0.8-2.9); LYMPHOCYTES % 23.2 % (15.0-51.0); MEAN CORPUSCULAR HEMOGLOBIN 30.3 pg (29.0-33.0); MEAN CORPUSCULAR VOLUME 89.2 fl (82.0-101.0); MEAN PLATELET VOLUME 9.7 fl (7.4-10.4); MONOCYTE # 0.6 10^3/ul (0.3-0.9); MONOCYTES % 8.2 % (0.0-11.0); NEUTROPHIL # 5.2 10^3/ul (1.6-7.5); NEUTROPHILS % 65.9 % (39.0-77.0); PLATELET COUNT 263 10^3/UL (140-415); RED BLOOD COUNT 3.89 10^6/ul (4.20-5.40); RED CELL DISTRIBUTION WIDTH 12.5 % (11.5-14.5)
[2018-08-16 09:50] LABS: WHITE BLOOD COUNT 7.8 10^3/ul (4.8-10.8)
[2018-08-16] MEDS: HYDROmorphONE 1 MG/ML SYG IV (10:00)
[2018-08-16] MEDS: DIPHENHYDRAMINE 50 MG INJ IV (10:00)
[2018-08-16] MEDS: PROCHLORPERAZINE 10 MG INJ IV (10:00)
[2018-08-16 10:14] LABS: ALANINE AMINOTRANSFERASE 27 IU/L (13-69); ALBUMIN 3.4 g/dl (3.3-4.9); ALBUMIN/GLOBULIN RATIO 1.47; ALKALINE PHOSPHATASE 69 IU/L (42-121); ANION GAP 12 (5-13); ASPARTATE AMINO TRANSFERASE 28 IU/L (15-46); BILIRUBIN,INDIRECT 0.3 mg/dl (0-1.1); BILIRUBIN,TOTAL 0.3 mg/dl (0.2-1.3); BLOOD UREA NITROGEN 6 mg/dl (7-20); CALCIUM 8.4 mg/dl (8.4-10.2); CARBON DIOXIDE 24 mmol/L (21-31); CHLORIDE 98 mmol/L (97-110); CREATININE 0.58 mg/dl (0.44-1.00); Estimated GFR > 60 mL/min (>60); POTASSIUM 4.2 mmol/L (3.5-5.1); SODIUM 134 mmol/L (135-144); TOTAL PROTEIN 5.7 g/dl (6.1-8.1)
[2018-08-16 10:18] LABS: INR 0.92; PARTIAL THROMBOPLASTIN TIME 25.7 Sec (23.0-35.0); PROTIME 12.4 Sec (11.9-14.9)
[2018-08-16 10:26] LABS: B-TYPE NATRIURETIC PEPTIDE 150 PG/ML (0-125); TROPONIN-I < 0.012 ng/ml (0.000-0.120)
[2018-08-16 10:29] LABS: GLUCOSE 457 mg/dl (70-220)
[2018-08-16] MEDS: INSULIN LISPRO 100 UNIT/ML VIAL SC (11:11)
== END 2018-08-16 13:35 | disposition home or self-care (01) ==
LOC: E/R 09:30
DX: E11.65 Type 2 diabetes mellitus with hyperglycemia (principal); R40.2252 Coma scale, best verbal response, oriented, at arrival to emergency department; R40.2362 Coma scale, best motor response, obeys commands, at arrival to emergency department; R40.2142 Coma scale, eyes open, spontaneous, at arrival to emergency department; R60.0 Localized edema; I10 Essential (primary) hypertension; I25.10 Atherosclerotic heart disease of native coronary artery without angina pectoris; G43.909 Migraine, unspecified, not intractable, without status migrainosus; Z95.5 Presence of coronary angioplasty implant and graft; Z79.82 Long term (current) use of aspirin; Z79.01 Long term (current) use of anticoagulants; Z79.4 Long term (current) use of insulin
CPT/HCPCS: 36415; 70450; 71045; 80053; 82962; 83880; 84484; 85025; 85610; 85730; 93970; 96372; 96374; 96375; 99285-25

== ENCOUNTER 2018-08-27 07:49 | Emergency (ER) | payer OTHER ==
[2018-08-27 08:12] LABS: ADD MAN DIFF? NO
[2018-08-27 08:28] LABS: BASOPHILS % 0.4 % (0.0-2.0); EOSINOPHILS # 0.2 10^3/ul (0.0-0.5); EOSINOPHILS % 2.7 % (0.0-7.0); HEMATOCRIT 37.8 % (37.0-47.0); HEMOGLOBIN 13.3 g/dl (12.0-16.0); LYMPHOCYTES # 1.8 10^3/ul (0.8-2.9); LYMPHOCYTES % 24.2 % (15.0-51.0); MEAN CORPUSCULAR HEMOGLOBIN 30.8 pg (29.0-33.0); MEAN CORPUSCULAR HGB CONC 35.2 g/dl (32.0-37.0); MEAN CORPUSCULAR VOLUME 87.5 fl (82.0-101.0); MEAN PLATELET VOLUME 10.1 fl (7.4-10.4); MONOCYTE # 0.5 10^3/ul (0.3-0.9); MONOCYTES % 7.2 % (0.0-11.0); NEUTROPHIL # 4.9 10^3/ul (1.6-7.5); NEUTROPHILS % 65.2 % (39.0-77.0); PLATELET COUNT 375 10^3/UL (140-415); RED BLOOD COUNT 4.32 10^6/ul (4.20-5.40); RED CELL DISTRIBUTION WIDTH 12.5 % (11.5-14.5)
[2018-08-27 08:28] LABS: WHITE BLOOD COUNT 7.5 10^3/ul (4.8-10.8)
[2018-08-27] MEDS: morphine 4 MG/ML VIAL IV (08:32)
[2018-08-27] MEDS: ONDANSETRON 4 MG INJ IV (08:33)
[2018-08-27] MEDS: SOD CHLORIDE 0.9% 1,000 ML IV (08:33)
[2018-08-27 09:28] LABS: MODE ROOM AIR; MetHgb Venous 0.2 %; Sample Type Blood venous; Site VENOUS LINE; Venous COHb 0.7 %; Venous Fraction OxyHgb 41.9 %; Venous Oxygen Sat 42.3 mmHG (55.0-75.0)
[2018-08-27 09:51] LABS: ANION GAP 4 (5-13); BLOOD UREA NITROGEN 8 mg/dl (7-20); CALCIUM 8.5 mg/dl (8.4-10.2); CARBON DIOXIDE 25 mmol/L (21-31); CHLORIDE 104 mmol/L (97-110); CREATININE 0.68 mg/dl (0.44-1.00); Estimated GFR > 60 mL/min (>60); MAGNESIUM 1.8 mg/dl (1.7-2.5); PHOSPHORUS 3.3 mg/dl (2.5-4.9); POTASSIUM 4.5 mmol/L (3.5-5.1); SODIUM 133 mmol/L (135-144)
[2018-08-27 09:55] LABS: GLUCOSE 456 mg/dl (70-220)
[2018-08-27] MEDS: INSULIN LISPRO 100 UNIT/ML VIAL SC (10:49)
== END 2018-08-27 11:32 | disposition home or self-care (01) ==
LOC: E/R 07:49
DX: R51 Headache (principal); E11.65 Type 2 diabetes mellitus with hyperglycemia; I10 Essential (primary) hypertension; I25.10 Atherosclerotic heart disease of native coronary artery without angina pectoris; Z79.01 Long term (current) use of anticoagulants; Z79.4 Long term (current) use of insulin; Z79.82 Long term (current) use of aspirin; Z98.61 Coronary angioplasty status
CPT/HCPCS: 36415; 70450; 80048; 82803; 82962; 83735; 84100; 85025; 96372; 96374; 96375; 99285-25

== ENCOUNTER 2019-02-28 09:18 | Inpatient (IN) | payer OTHER ==
[2019-02-28 10:50] LABS: ADD MAN DIFF? NO
[2019-02-28 10:54] LABS: BASOPHILS % 0.4 % (0.0-2.0); EOSINOPHILS # 0.2 10^3/ul (0.0-0.5); EOSINOPHILS % 2.3 % (0.0-7.0); HEMATOCRIT 41.7 % (37.0-47.0); HEMOGLOBIN 14.6 g/dl (12.0-16.0); LYMPHOCYTES # 1.8 10^3/ul (0.8-2.9); LYMPHOCYTES % 20.2 % (15.0-51.0); MEAN CORPUSCULAR HEMOGLOBIN 29.8 pg (29.0-33.0); MEAN CORPUSCULAR VOLUME 85.1 fl (82.0-101.0); MEAN PLATELET VOLUME 9.9 fl (7.4-10.4); MONOCYTE # 0.6 10^3/ul (0.3-0.9); MONOCYTES % 6.5 % (0.0-11.0); NEUTROPHIL # 6.3 10^3/ul (1.6-7.5); NEUTROPHILS % 70.3 % (39.0-77.0); PLATELET COUNT 339 10^3/UL (140-415); RED CELL DISTRIBUTION WIDTH 12.1 % (11.5-14.5)
[2019-02-28 10:55] LABS: MODE ROOM AIR; MetHgb Venous 0.4 %; Sample Type Blood venous; Site VENOUS LINE; Venous COHb 0.6 %; Venous Oxygen Sat 32.3 mmHG (55.0-75.0); Venous Total Hemglobin 15.7 g/dl
[2019-02-28 11:13] LABS: ANION GAP 13 (5-13); BLOOD UREA NITROGEN 7 mg/dl (7-20); CALCIUM 9.3 mg/dl (8.4-10.2); CARBON DIOXIDE 22 mmol/L (21-31); CHLORIDE 101 mmol/L (97-110); CREATININE 0.81 mg/dl (0.44-1.00); Estimated GFR > 60 mL/min (>60); MAGNESIUM 1.7 mg/dl (1.7-2.5); PHOSPHORUS 3.9 mg/dl (2.5-4.9); POTASSIUM 4.2 mmol/L (3.5-5.1); SODIUM 136 mmol/L (135-144)
[2019-02-28] MEDS: SOD CHLORIDE 0.9% 1,000 ML IV ×2 (11:15→17:34)
[2019-02-28 11:18] LABS: GLUCOSE 480 mg/dl (70-220)
[2019-02-28 11:37] LABS: ADD UMIC YES; UR ASCORBIC ACID NEGATIVE (NEGATIVE); UR BACTERIA FEW /HPF (NONE SEEN); UR BILIRUBIN (Dip) NEGATIVE (NEGATIVE); UR BLOOD (Dip) NEGATIVE (NEGATIVE); UR CLARITY SLIGHTLY CLOUDY (CLEAR); UR COLOR YELLOW (YELLOW); UR GLUCOSE (Dip) 3+ mg/dL (NEGATIVE); UR KETONES (Dip) NEGATIVE (NEGATIVE); UR LEUKOCYTE ESTERASE (Dip) NEGATIVE Leu/ul (NEGATIVE); UR NITRITE (Dip) NEGATIVE (NEGATIVE); UR RBC 3 /HPF (0-5); UR SPECIFIC GRAVITY (Dip) 1.032 (1.003-1.030); UR SQUAMOUS EPITHELIAL CELL MODERATE /HPF (FEW); UR TOTAL PROTEIN (Dip) 1+ mg/dl (NEGATIVE); UR UROBILINOGEN (Dip) NEGATIVE (NEGATIVE); UR WBC 2 /HPF (0-5)
[2019-02-28] MEDS: HYDROCODONE/APAP (10/325) TAB PO (11:59)
[2019-02-28] MEDS: DIPHENHYDRAMINE 50 MG CAP PO (11:59)
[2019-02-28] MEDS ORDERED: DEXTROSE 50% 50 ML SYRINGE IV ×2 (13:00)
[2019-02-28] MEDS ORDERED: GLUCOSE GEL 15 GRAM TUBE PO ×2 (13:00)
[2019-02-28] MEDS ORDERED: GLUCAGON 1 MG INJ IM (13:00)
[2019-02-28] MEDS ORDERED: GLUCOSE GEL 15 GRAM TUBE BUCCAL (13:00)
[2019-02-28] MEDS: ASPIRIN 81 MG TAB PO (13:14)
[2019-02-28] MEDS: INSULIN LISPRO 100 UNIT/ML VIAL SC (13:16)
[2019-02-28] MEDS ORDERED: ONDANSETRON 4 MG INJ IV (13:30)
[2019-02-28] MEDS ORDERED: ACETAMINOPHEN 325 MG TAB PO ×2 (13:30→15:30)
[2019-02-28] MEDS: ACCU-CHEK XX (13:35)
[2019-02-28] MEDS ORDERED: CARISOPRODOL 350 MG TAB PO (15:30)
[2019-02-28] MEDS ORDERED: DIPHENHYDRAMINE 50 MG CAP PO (15:30)
[2019-02-28] MEDS ORDERED: NON-FORMULARY/PATIENT OWN MED (Temazepam* 30 MG) PO (15:30)
[2019-02-28] MEDS ORDERED: DOCUSATE SODIUM 100 MG CAP PO (15:30)
[2019-02-28] MEDS ORDERED: HYDROCODONE/APAP (5/325) TAB PO (15:30)
[2019-02-28] MEDS ORDERED: NACL 0.9% 3 ML SYG IV (15:30)
[2019-02-28] MEDS ORDERED: NITROGLYCERIN (SL) 0.4 MG TAB SL (15:30)
[2019-02-28] MEDS: morphine 2 MG INJ IV ×2 (17:33→21:38)
[2019-02-28] MEDS: ONDANSETRON 4 MG INJ IV (17:33)
[2019-02-28] MEDS: INSULIN ASPART [NOVOLOG] 3 ML PEN SC ×3 (18:06→21:26)
[2019-02-28 18:58] LABS: CHOL/HDL RATIO 2.6 RATIO; HDL CHOLESTEROL 73 mg/dl (37-92); LDL CHOLESTEROL,CALCULATED 89 mg/dl; TRIGLYCERIDES 158 mg/dl (0-149)
[2019-02-28 18:58] LABS: CHOLESTEROL 194 mg/dl (100-200)
[2019-02-28 19:18] LABS: AMPHETAMINE/METHAMPHETAMINE Negative (NEGATIVE); BARBITURATES Negative (NEGATIVE); BENZODIAZEPINES Negative (NEGATIVE); CANNABINOIDS Positive (NEGATIVE); COCAINE Positive (NEGATIVE); OPIATES Negative (NEGATIVE)
[2019-02-28 19:59] LABS: ERYTHROCYTE SEDIMENTATION RATE 14 mm/Hr (0-30)
[2019-02-28] MEDS: GABAPENTIN 300 MG CAP PO (21:14)
[2019-02-28] MEDS: PAROXETINE 10 MG TAB PO (21:14)
[2019-02-28] MEDS: ATORVASTATIN 80 MG TAB PO (21:14)
[2019-02-28] MEDS: INSULIN GLARGINE [LANTus] (100 UNITS/ML) SYG SC (21:27)
[2019-02-28] MEDS: ZOLPIDEM 5 MG TAB PO (22:45)
[2019-03-01] MEDS: SOD CHLORIDE 0.9% 1,000 ML IV ×3 (01:04→21:57)
[2019-03-01] MEDS: ACCU-CHEK XX (01:05)
[2019-03-01] MEDS: morphine 2 MG INJ IV ×5 (04:16→21:43)
[2019-03-01 06:35] LABS: ADD MAN DIFF? NO
[2019-03-01 06:42] LABS: WHITE BLOOD COUNT 8.4 10^3/ul (4.8-10.8)
[2019-03-01 06:42] LABS: BASOPHILS % 0.4 % (0.0-2.0); EOSINOPHILS # 0.3 10^3/ul (0.0-0.5); EOSINOPHILS % 3.2 % (0.0-7.0); LYMPHOCYTES # 2.3 10^3/ul (0.8-2.9); MEAN CORPUSCULAR HEMOGLOBIN 29.8 pg (29.0-33.0); MEAN CORPUSCULAR HGB CONC 35.3 g/dl (32.0-37.0); MEAN CORPUSCULAR VOLUME 84.4 fl (82.0-101.0); MONOCYTE # 0.7 10^3/ul (0.3-0.9); MONOCYTES % 8.5 % (0.0-11.0); NEUTROPHIL # 5.1 10^3/ul (1.6-7.5); NEUTROPHILS % 60.5 % (39.0-77.0); PLATELET COUNT 282 10^3/UL (140-415); RED BLOOD COUNT 4.03 10^6/ul (4.20-5.40); RED CELL DISTRIBUTION WIDTH 12.3 % (11.5-14.5)
[2019-03-01 07:39] LABS: ANION GAP 5 (5-13); BLOOD UREA NITROGEN 9 mg/dl (7-20); CALCIUM 8.3 mg/dl (8.4-10.2); CARBON DIOXIDE 23 mmol/L (21-31); CHLORIDE 109 mmol/L (97-110); CREATININE 0.58 mg/dl (0.44-1.00); Estimated GFR > 60 mL/min (>60); GLUCOSE 136 mg/dl (70-220); MAGNESIUM 1.4 mg/dl (1.7-2.5); PHOSPHORUS 4.5 mg/dl (2.5-4.9); POTASSIUM 3.6 mmol/L (3.5-5.1); SODIUM 137 mmol/L (135-144)
[2019-03-01] MEDS: INSULIN ASPART [NOVOLOG] 3 ML PEN SC ×7 (07:55→21:00)
[2019-03-01] MEDS: INSULIN GLARGINE [LANTus] (100 UNITS/ML) SYG SC ×2 (09:00→21:51)
[2019-03-01] MEDS: FLUTICASONE/VILANTEROL 100-25 INH (09:00)
[2019-03-01] MEDS: GABAPENTIN 300 MG CAP PO ×3 (09:29→20:10)
[2019-03-01] MEDS: ISOSORBIDE MONONITRATE(SR)30 MG TAB PO (09:29)
[2019-03-01] MEDS: METOPROLOL (XL) 25 MG TAB PO (09:29)
[2019-03-01] MEDS: DOCUSATE SODIUM 100 MG CAP PO (09:29)
[2019-03-01] MEDS: LOSARTAN 50 MG TAB PO (09:29)
[2019-03-01] MEDS: ASPIRIN (EC) 81 MG TAB PO (09:30)
[2019-03-01] MEDS: CLOPIDOGREL 75 MG TAB PO (09:30)
[2019-03-01] MEDS: AMLODIPINE 10 MG TAB PO (09:30)
[2019-03-01] MEDS: LORATADINE 10 MG TAB PO (09:30)
[2019-03-01 15:46] LABS: RAPID PLASMA REAGIN NONREACTIVE (NR)
[2019-03-01] MEDS: DIPHENHYDRAMINE 50 MG INJ IV ×2 (15:58→23:01)
[2019-03-01] MEDS: MAGNESIUM SULFATE 4 GM/100 ML 100 ML IVPB (16:03)
[2019-03-01] MEDS: PAROXETINE 10 MG TAB PO (20:10)
[2019-03-01] MEDS: ATORVASTATIN 80 MG TAB PO (20:10)
[2019-03-02] MEDS: morphine 2 MG INJ IV ×4 (01:47→13:53)
[2019-03-02] MEDS: ACCU-CHEK XX (02:36)
[2019-03-02] MEDS: SOD CHLORIDE 0.9% 1,000 ML IV (05:29)
[2019-03-02] MEDS: DIPHENHYDRAMINE 50 MG INJ IV (07:19)
[2019-03-02] MEDS: INSULIN ASPART [NOVOLOG] 3 ML PEN SC ×4 (08:05→12:08)
[2019-03-02 08:53] LABS: ANION GAP 7 (5-13); BLOOD UREA NITROGEN 9 mg/dl (7-20); CALCIUM 8.7 mg/dl (8.4-10.2); CARBON DIOXIDE 25 mmol/L (21-31); CHLORIDE 108 mmol/L (97-110); CREATININE 0.69 mg/dl (0.44-1.00); Estimated GFR > 60 mL/min (>60); GLUCOSE 94 mg/dl (70-220); MAGNESIUM 1.7 mg/dl (1.7-2.5); POTASSIUM 3.9 mmol/L (3.5-5.1); SODIUM 140 mmol/L (135-144)
[2019-03-02] MEDS: FLUTICASONE/VILANTEROL 100-25 INH (09:00)
[2019-03-02] MEDS: ISOSORBIDE MONONITRATE(SR)30 MG TAB PO (09:22)
[2019-03-02] MEDS: CLOPIDOGREL 75 MG TAB PO (09:23)
[2019-03-02] MEDS: METOPROLOL (XL) 25 MG TAB PO (09:23)
[2019-03-02] MEDS: GABAPENTIN 300 MG CAP PO ×2 (09:23→12:42)
[2019-03-02] MEDS: LOSARTAN 50 MG TAB PO (09:24)
[2019-03-02] MEDS: LORATADINE 10 MG TAB PO (09:24)
[2019-03-02] MEDS: AMLODIPINE 10 MG TAB PO (09:24)
[2019-03-02] MEDS: ASPIRIN (EC) 81 MG TAB PO (09:24)
[2019-03-02] MEDS: DOCUSATE SODIUM 100 MG CAP PO (09:31)
== END 2019-03-02 15:15 | disposition home or self-care (01) | DRG 639 ==
LOC: E/R 09:18 → TEL 13:11
PROVIDERS: Internal Medicine
DX: E11.65 Type 2 diabetes mellitus with hyperglycemia (principal); F39 Unspecified mood [affective] disorder; I25.10 Atherosclerotic heart disease of native coronary artery without angina pectoris; I10 Essential (primary) hypertension; I25.2 Old myocardial infarction; F14.10 Cocaine abuse, uncomplicated; E11.40 Type 2 diabetes mellitus with diabetic neuropathy, unspecified
CPT/HCPCS: 36415; 70450; 70552; 71045; 80048; 80061; 80307; 81001; 82803; 82962; 83036; 83735; 84100; 85025; 85651; 86592; 93880; 96360; 96361; 97161; 99285-25